=== PATIENT | male | born 1950 | race Caucasian/White ===

== ENCOUNTER 2018-02-24 08:19 | Day surgery (SDC) | payer OTHER ==
[~2018-02-24] VITALS: Ht 175.3 cm; Wt 89.8 kg
[~2018-02-24 08:19] MED LIST: ACYC200 PO; AMLO10 PO; AMLODIPINE-VAL1 EAC2 PO; ATOR40TA PO; CALC.25 PO; CALCA500CH PO; CHOL10002 PO; CITA20 PO; Citalopram HBr10 MG PO; FURO20 PO; Flomax0.4 MG PO; GI COCKTAIL; LOSA50 PO; METO100ER PO; METO50ER PO; NITR.6SL SL; Nephro-Vite RX1 EA PO; PANT40 PO; SEVE800 PO; SUCR1 PO; TERA5 PO
--- NOTE | 2018-02-24 09:00 | NUR ---
Ambulatory in Day Surgery History, Chart, Medications and Allergies reviewed before start of procedure.Patient confirms NPO status and agrees with scheduled surgery.STAT 12 LEAD ECG, H&H, CHEM PANEL COMPLETED. LUNGS WITH SCATTERED INSPIRATORY AND EXPIRATORY WHEEZES-HX OF LEFT LOBECTOMY. SATS>90% ON RA. Patient States Post-Procedure ride home has been arranged.
[2018-02-24 09:51] LABS: Bun/Creatinine Ratio 4.1 (12.0-20.0); Calcium, Blood 7.9 mg/dL (8.5-10.1); Creatinine, Blood 7.78 mg/dL (0.60-1.20); Potassium, Blood 4.7 mmol/L (3.5-5.5)
--- NOTE | 2018-02-24 10:14 | NUR ---
DENTURES OUT AND BROUGHT TO PACU FOR SAFE KEEPING DURING SURGERY.
--- NOTE | 2018-02-24 10:14 | NUR ---
CONTACT LENSE LEFT IN PER DR CABRERA.
--- NOTE | 2018-02-24 10:32 | NUR ---
02/24/18 1032 Jonathan Galeana NO PRE-OP ANTIBIOTICS ORDERED.
--- NOTE | 2018-02-24 12:36 | NUR ---
Discharge instructions reviewed with patient. Patient verbalizes understanding. Copy given to patient to take home. DC INSTRUCTIONS REVIEWED WITH PT/FAMILY. PT DRESSED WITH ASSIST FROM RN. PT JOKES ABOUT DIALYISIS STAFF ALWAYS CONCERNED THAT HE MAY FALL HIS GAIT IS UNSTABLE. THIS RN ASSISTS PT TO STAND AND TRANSFER TO AFTER ASSISTING HIM WITH GETTING DRESSED. PT SMOKES AND HAS INHALER. ENC TO STOP SMOKING. ENC TO DEEP BREATH AT LEAST 10 TIMES PER HOUR. ENC TO USE HIS INHALER DIRECTED T/O HIS RECOVERY PROCESS. Patient States Post-Procedure ride home has been arranged. Discharged via wheelchair to private car for ride home.
== END 2018-02-24 23:55 | disposition home or self-care (01) ==
LOC: ORSCMMR 08:19 → ORD 09:45 → ORSCMMR 23:55
PROVIDERS: Surgery
PROC: 06BY0ZC Excision of Hemorrhoidal Plexus, Open Approach (ICD-10-PCS; principal; 2018-02-24 09:45)
DX: K64.2 Third degree hemorrhoids (principal); K64.1 Second degree hemorrhoids; K64.4 Residual hemorrhoidal skin tags; I50.9 Heart failure, unspecified; N18.5 Chronic kidney disease, stage 5; Z99.2 Dependence on renal dialysis; J44.9 Chronic obstructive pulmonary disease, unspecified; F17.210 Nicotine dependence, cigarettes, uncomplicated; Z79.899 Other long term (current) drug therapy
CPT/HCPCS: 80048; 85014; 85018; 88304; 93005; 93010; J1100; J2250; J2370; J2405; J3010; J7030

== ENCOUNTER 2018-03-01 15:55 | Observation (INO) | payer OTHER ==
[~2018-03-01] VITALS: Ht 177.8 cm; Wt 89.5 kg
[2018-03-01 16:41] LABS: BASOPHILS ABSOLUTE AUTO 0.05 K/mm3 (0.00-0.23); BASOPHILS PERCENT AUTO 1 % (0-2); EOSINOPHILS ABSOLUTE AUTO 0.18 K/mm3 (0.00-0.68); EOSINOPHILS PERCENT AUTO 2 % (0-6); Hematocrit 31.7 % (37.0-53.0); IMMATURE GRAN ABSOLUTE AUTO 0.04 K/mm3 (0.00-0.10); IMMATURE GRAN PERCENT AUTO 0 % (0-1); LYMPHOCYTES ABSOLUTE AUTO 0.65 K/mm3 (0.84-5.20); LYMPHOCYTES PERCENT AUTO 7 % (21-46); MONOCYTES ABSOLUTE AUTO 1.14 K/mm3 (0.16-1.47); MONOCYTES PERCENT AUTO 12 % (4-13); Mean Corpuscular HGB 32.3 pg (26.0-34.0); Mean Corpuscular HGB Conc 31.5 g/dL (31.5-36.5); Mean Corpuscular Volume 102 fL (80-100); Mean Platelet Volume 9.3 fL (9.1-12.4); NEUTROPHILS ABSOLUTE AUTO 7.31 K/mm3 (1.96-9.15); NEUTROPHILS PERCENT AUTO 78 % (41-73); Platelet Count 372 K/mm3 (150-400); RDW Coefficient Variation 15.6 % (11.7-14.2); RDW Standard Deviation 58.5 fL (35.1-46.3); White Blood Cell Count 9.37 K/mm3 (4.00-11.30)
[2018-03-01 17:35] LABS: Albumin, Blood 3.2 g/dL (3.4-5.0); Albumin/Globulin Ratio 0.7 (0.8-1.8); Bilirubin, Total 0.3 mg/dL (0.1-1.0); Bun/Creatinine Ratio 5.1 (12.0-20.0); Calcium, Blood 8.4 mg/dL (8.5-10.1); Creatinine, Blood 14.2 mg/dL (0.60-1.20); Globulin, Blood 4.5 g/dL (2.2-4.0); Potassium, Blood 5.8 mmol/L (3.5-5.5); Total Protein, Blood 7.7 g/dL (6.4-8.2)
[2018-03-01 21:48] LABS: Magnesium, Blood 3.2 mg/dL (1.6-2.4); Phosphorus, Blood 6.5 mg/dL (2.5-4.9)
[2018-03-01 23:10] LABS: PO2 Arterial 80.4 mmHg (80-100); pH Blood Arterial 7.34 (7.35-7.45)
--- NOTE | 2018-03-01 23:25 | NUR ---
DR BURLESON CALLED AND ORDERED STAT POTASSIUM AND ABG DRAWS. CALLED DR BURLESON ONCE RESULTS WERE AVAILABLE AND READ RESULTS TO HIM. DR BURLESON STATED "THAT SEEMS FINE, WE WILL DIALYZE THE PT IN THE MORNING".
[2018-03-02 00:13] LABS: Source, Urine Catheter
[2018-03-02 00:16] LABS: Bilirubin, Urine Neg (Neg); Blood, Urine 1+ (Neg); Glucose Qualitative, Urine Neg (Neg); Ketones, Urine Neg (Neg); Leukocyte Esterase, Urine Neg (Neg); Nitrite, Urine Neg (Neg); Protein, Urine 2+ (Neg); Urobilinogen, Urine NORM (Normal)
[2018-03-02 00:24] LABS: Appearance, Urine Clear (Clear); Color, Urine Yellow (P-Yellow)
[2018-03-02 00:25] LABS: Red Blood Cells, Urine 0-2 /hpf (0-2); Squamous Epithelial Cells Not Seen /hpf (Few); White Blood Cells, Urine Rare /hpf (0-5)
[2018-03-02 00:26] LABS: Bacteria Not Seen /hpf
[2018-03-02 04:48] LABS: Hemoglobin 8.4 g/dL (13.5-17.5); Mean Corpuscular HGB 32.1 pg (26.0-34.0); Mean Corpuscular HGB Conc 31.1 g/dL (31.5-36.5); Mean Corpuscular Volume 103 fL (80-100); Mean Platelet Volume 9.1 fL (9.1-12.4); Platelet Count 329 K/mm3 (150-400); RDW Coefficient Variation 15.8 % (11.7-14.2); Red Blood Cell Count 2.62 M/mm3 (4.30-5.90); White Blood Cell Count 10.38 K/mm3 (4.00-11.30)
[2018-03-02 05:45] LABS: Albumin, Blood 2.8 g/dL (3.4-5.0); Anion Gap 12 mmol/L (6-16); Blood Urea Nitrogen 78 mg/dL (8-24); Bun/Creatinine Ratio 5.4 (12.0-20.0); CO2, Blood 28 mmol/L (21-32); Calcium, Blood 7.6 mg/dL (8.5-10.1); Chloride, Blood 93 mmol/L (98-108); Glomerular Filtration Rate 4 (60-); Glucose, Blood 85 mg/dL (70-99); Phosphorus, Blood 6.8 mg/dL (2.5-4.9); Potassium, Blood 5.4 mmol/L (3.5-5.5); Sodium, Blood 133 mmol/L (136-145)
--- NOTE | 2018-03-02 06:58 | NUR ---
NOC SHIFT SUMMARY THIS PT WAS ADMITTED THIS NIGHT FOR CKD AND INCREASED K+ AND CREATININE. HE HAS BEEN LARGLEY COMPLIANT WITH CARE BUT CAN GET ANXIOUS AND RUDE. A WHELAN WAS PLACED FOR URINARY RETENSION. HE HAS SLEPT LARGELY THROUGHT THE NIGHT. BENJY WAS IN THIS NIGHT AND IS AWARE OF LABS.
--- NOTE | 2018-03-02 19:25 | NUR ---
SHIFT SUMMARY PT HAD DIALYSIS TODAY. HAS BECOME MORE BELLIGERANT THE DAY GOES ON. REPORT VISUAL HALLUCINATIONS AND FEELING LIKE HE CAN'T MAKE A FULL CONSCIOUS COMMENT. FOUND GETTING OUT OF BED AT SUPPERTIME AND ASSISTED TO CHAIR WITH ALARM IN PLACE. STARTED COMPLAINING THAT HE HAD THE URGE TO URINATE AND HIS BLADDER HURT. TUBING WITHOUT KINKS OR BENDS AND APPEARED TO BE DRAINING PROPERLY. SPOKE WITH MD ABOUT BEHAVIOR AND WHELAN. SEE NEW ORDERS. HAS HAD LOOSE STOOL TODAY.
--- NOTE | 2018-03-03 05:12 | NUR ---
NOC SHIFT SUMMARY PT HAS BEEN LARGELY COMPLIANT WITH CARE THOUGH STILL VERBALLY RUDE TO STAFF. HAS HAD VISUAL HALUCINATIONS THIS NIGHT BELIEVING HIS REFELCTION IS ANOTHER PERSON. ALSO BELIEVES HIMSELF TO BE A "19 YEAR OLD WHITE MAN". IS CONTINENT OF URINE AND STOOL. HAS VOIDED MULTIPLE TIMES THROUGH THE NIGHT WELL HAD BM. PT HAS BEEN NPO SINCE MIDNIGHT IN PREP FOR [facility]. CURRENTLY RESTING PEACEFULLY.
[2018-03-03 05:44] LABS: BASOPHILS ABSOLUTE AUTO 0.04 K/mm3 (0.00-0.23); BASOPHILS PERCENT AUTO 1 % (0-2); EOSINOPHILS ABSOLUTE AUTO 0.27 K/mm3 (0.00-0.68); EOSINOPHILS PERCENT AUTO 4 % (0-6); Hematocrit 30.8 % (37.0-53.0); Hemoglobin 9.5 g/dL (13.5-17.5); IMMATURE GRAN ABSOLUTE AUTO 0.02 K/mm3 (0.00-0.10); IMMATURE GRAN PERCENT AUTO 0 % (0-1); LYMPHOCYTES PERCENT AUTO 13 % (21-46); MONOCYTES ABSOLUTE AUTO 1.08 K/mm3 (0.16-1.47); MONOCYTES PERCENT AUTO 15 % (4-13); Mean Corpuscular HGB 31.8 pg (26.0-34.0); Mean Corpuscular HGB Conc 30.8 g/dL (31.5-36.5); Mean Corpuscular Volume 103 fL (80-100); Mean Platelet Volume 9.3 fL (9.1-12.4); NEUTROPHILS ABSOLUTE AUTO 4.71 K/mm3 (1.96-9.15); NEUTROPHILS PERCENT AUTO 67 % (41-73); Platelet Count 322 K/mm3 (150-400); RDW Coefficient Variation 15.9 % (11.7-14.2); RDW Standard Deviation 60.6 fL (35.1-46.3); Red Blood Cell Count 2.99 M/mm3 (4.30-5.90); White Blood Cell Count 7.02 K/mm3 (4.00-11.30)
[2018-03-03 06:34] LABS: Magnesium, Blood 2.6 mg/dL (1.6-2.4)
[2018-03-03 06:45] LABS: Albumin, Blood 2.7 g/dL (3.4-5.0); Anion Gap 10 mmol/L (6-16); Blood Urea Nitrogen 43 mg/dL (8-24); Bun/Creatinine Ratio 4.1 (12.0-20.0); CO2, Blood 31 mmol/L (21-32); Calcium, Blood 7.8 mg/dL (8.5-10.1); Chloride, Blood 95 mmol/L (98-108); Glomerular Filtration Rate 5 (60-); Glucose, Blood 85 mg/dL (70-99); Phosphorus, Blood 5.7 mg/dL (2.5-4.9); Potassium, Blood 4.9 mmol/L (3.5-5.5); Sodium, Blood 136 mmol/L (136-145)
--- NOTE | 2018-03-03 07:16 | NUR ---
CRITICAL HIGH CREATININE SAW DR BURLESON IN COUNT INCLUDES THE [facility], REPORTED PT HAD CRITICAL HIGH CREATININE 10.[address] BURLESON "THATS OK, HE WILL BE GETTING DIALYSIS TODAY".
[2018-03-03] MEDS ORDERED: ACET325 PO (13:49)
[2018-03-03] MEDS ORDERED: ALBU90OI INH (13:50)
[2018-03-03] MEDS ORDERED: AMLO5 PO (13:51)
[2018-03-03] MEDS ORDERED: OYSTER SHELL C PO (13:55)
[2018-03-03] MEDS ORDERED: DOCU100 PO (13:56)
[2018-03-03] MEDS ORDERED: MIRALAX17 GM PO (13:57)
[2018-03-03] MEDS ORDERED: ONDA4 PO (13:57)
--- NOTE | 2018-03-03 16:50 | NUR ---
PATIENT DISCHARGE: PATIENT DISCHARGED TO HOME THIS SHIFT. MEDICATION RECONCILIATION COMPLETED; MED LIST AND OTHER PERTINENT PAPERWORK FAXED TO [facility]. DISCHARGE EDUCATION COMPLETED WITH PATIENT. PATIENT TRANSPORTED TO EXIT BY [facility] STAFF WITH WHEELCHAIR AT 1640. PATIENT DEPARTED [facility] VIA PRIVATE AUTO.
== END 2018-03-03 16:42 | disposition home or self-care (01) ==
LOC: ER 15:55 → MEDS 15:56 → ENPENDDIS 03-03 12:53 → MEDS 03-03 16:42
PROVIDERS: Emergency Medicine; Internal Medicine Nephrology; Nurse Practitioner Acute Care; ADMIT Hospitalist
DX: G93.40 Encephalopathy, unspecified (principal); I13.2 Hypertensive heart and chronic kidney disease with heart failure and with stage 5 chronic kidney disease, or end stage renal disease; I50.9 Heart failure, unspecified; D63.1 Anemia in chronic kidney disease; N18.6 End stage renal disease; E87.1 Hypo-osmolality and hyponatremia; E83.30 Disorder of phosphorus metabolism, unspecified; E87.5 Hyperkalemia; J44.9 Chronic obstructive pulmonary disease, unspecified; R10.9 Unspecified abdominal pain; B00.9 Herpesviral infection, unspecified; M54.5 Low back pain; G89.29 Other chronic pain; K21.9 Gastro-esophageal reflux disease without esophagitis; E78.5 Hyperlipidemia, unspecified; E86.9 Volume depletion, unspecified; N25.81 Secondary hyperparathyroidism of renal origin; Z79.899 Other long term (current) drug therapy; Z85.828 Personal history of other malignant neoplasm of skin; Z86.010 Personal history of colon polyps; Z91.15 Patient's noncompliance with renal dialysis
CPT/HCPCS: 36415; 36430; 36600; 51702; 74022; 76700; 80048; 80053; 80069; 81001; 82330; 82803; 82947; 83735; 84100; 84132; 85014; 85018; 85025; 85027; 86850; 86900; 86901; 86923; 93005; 93010; 94640; 94760; 96361; 96374; 96375; 97162; 97530; 99285-25; G0103; G0257; G0378; G0480; J0610; J0881; J1815; J2405; J7030; P9016

== ENCOUNTER 2019-07-18 06:50 | Day surgery (SDC) | payer OTHER ==
[~2019-07-18] VITALS: Ht 175.3 cm; Wt 80.1 kg
[~2019-07-18 06:50] MED LIST changes: +ACET325 PO; +ALBU90OI INH; +AMLO5 PO; +DOCU100 PO; +ERGO400 PO; +Exforge 5-3201 EACH PO; +MIRALAX17 GM PO; +ONDA4 PO; +OYSTER SHELL C PO; +SEVEC800 PO; +TRAMADOL HCL E100 MG PO
[2019-07-18] MEDS ORDERED: CINA30 (07:13)
[2019-07-18] MEDS ORDERED: LOPE2C (07:13)
== END 2019-07-18 08:51 | disposition home or self-care (01) ==
LOC: ORSCSDS 06:50
PROVIDERS: Ophthalmology
PROC: 08RJ3JZ Replacement of Right Lens with Synthetic Substitute, Percutaneous Approach (ICD-10-PCS; principal; 2019-07-18 08:00)
DX: H25.11 Age-related nuclear cataract, right eye (principal); H21.81 Floppy iris syndrome; I10 Essential (primary) hypertension; E11.9 Type 2 diabetes mellitus without complications; E78.5 Hyperlipidemia, unspecified; J44.9 Chronic obstructive pulmonary disease, unspecified; N18.4 Chronic kidney disease, stage 4 (severe); Z79.899 Other long term (current) drug therapy
CPT/HCPCS: J2001; J2250; J2405; J3010; J3301; J7040; V2632

== ENCOUNTER 2020-03-12 12:47 | Observation (INO) | payer OTHER, MEDICARE ==
[~2020-03-12] VITALS: Ht 175.3 cm; Wt 78.1 kg
[~2020-03-12 12:47] MED LIST changes: +CINA30; +LOPE2C
[2020-03-12 16:40] LABS: Calcium, Ionized (POC) 0.93 mmol/L (1.10-1.46); Chloride (POC) 97 mmol/L (98-108); Creatinine (POC) 13.9 mg/dL (0.8-1.3); Glucose (ISTAT POC) 94 mg/dL (70-99); Hemoglobin (POC) 10.9 g/dL (13.5-17.5); Potassium (POC) 5.5 mmol/L (3.5-5.5); Sodium (POC) 137 mmol/L (135-148); Total CO2 (POC) 29 mmol/L (21-32)
[2020-03-12 17:56] LABS: BASOPHILS ABSOLUTE AUTO 0.08 K/mm3 (0.00-0.23); BASOPHILS PERCENT AUTO 1 % (0-2); EOSINOPHILS ABSOLUTE AUTO 0.25 K/mm3 (0.00-0.68); EOSINOPHILS PERCENT AUTO 3 % (0-6); Hematocrit 32.9 % (37.0-53.0); Hemoglobin 10.3 g/dL (13.5-17.5); IMMATURE GRAN ABSOLUTE AUTO 0.02 K/mm3 (0.00-0.10); IMMATURE GRAN PERCENT AUTO 0 % (0-1); LYMPHOCYTES ABSOLUTE AUTO 1.04 K/mm3 (0.84-5.20); LYMPHOCYTES PERCENT AUTO 13 % (21-46); MONOCYTES ABSOLUTE AUTO 0.67 K/mm3 (0.16-1.47); MONOCYTES PERCENT AUTO 8 % (4-13); Mean Corpuscular HGB 31.9 pg (26.0-34.0); Mean Corpuscular HGB Conc 31.3 g/dL (31.5-36.5); Mean Corpuscular Volume 102 fL (80-100); Mean Platelet Volume 9.4 fL (9.1-12.4); NEUTROPHILS PERCENT AUTO 75 % (41-73); Platelet Count 400 K/mm3 (150-400); RDW Coefficient Variation 12.6 % (11.7-14.2); RDW Standard Deviation 47.1 fL (35.1-46.3); Red Blood Cell Count 3.23 M/mm3 (4.30-5.90); White Blood Cell Count 8.16 K/mm3 (4.00-11.30)
[2020-03-12 18:15] LABS: Prothrombin Time Results 10.7 Sec (9.7-11.5)
[2020-03-12] MEDS ORDERED: AMLO5 PO (20:45)
[2020-03-12] MEDS ORDERED: LOPE2C PO (22:34)
[2020-03-12] MEDS ORDERED: Masophen500 MG PO (22:35)
--- NOTE | 2020-03-13 05:05 | NUR ---
SHIFT SUMMARY: JOHNNIE IS A&OX4. BP ELEVATED, VSS OTHERWISE. HE IS A ONE PERSON STANDBY ASSIST TO THE BATHROOM D/T PAIN AND BASELINE SOB. HE IS URINATING WITHOUT DIFFICULTY. HE HAS RESTED QUIETLY THE MAJORITY OF THE SHIFT. HE WAS MADE NPO AT MIDNIGHT IN ANTICIPATION OF SURGICAL INTERVENTION TODAY. IV TO R AC PATENT, HEPARIN INFUSING, WILL BE SHUT OFF AT 0600. HE IS ABLE TO MAKE HIS NEEDS KNOWN. HE IS LYING IN BED WITH HIS CALL LIGHT IN REACH. WILL REPORT TO DAY SHIFT RN.
[2020-03-13 05:32] LABS: Hematocrit 27.1 % (37.0-53.0); Hemoglobin 8.5 g/dL (13.5-17.5)
[2020-03-13 05:55] LABS: Influenza A, PCR Negative (NEGATIVE); Influenza B, PCR Negative (NEGATIVE); Resp Syncytial Virus, PCR Negative (NEGATIVE); SARS-Cov-2 (COVID-19) PCR, MMC Negative (NEGATIVE)
[2020-03-13 06:02] LABS: Magnesium, Blood 3.4 mg/dL (1.6-2.4)
[2020-03-13 06:10] LABS: Anion Gap 12 mmol/L (6-16); Blood Urea Nitrogen 94 mg/dL (8-24); Bun/Creatinine Ratio 6.9 (12.0-20.0); CO2, Blood 28 mmol/L (21-32); Calcium, Blood 7.7 mg/dL (8.5-10.1); Chloride, Blood 97 mmol/L (98-108); Glomerular Filtration Rate 4 (60-); Glucose, Blood 88 mg/dL (70-99); Phosphorus, Blood 8.5 mg/dL (2.5-4.9); Potassium, Blood 5.6 mmol/L (3.5-5.5); Sodium, Blood 137 mmol/L (136-145)
--- NOTE | 2020-03-13 07:47 | NUR ---
0747 to [facility] for intervention of dialysis shunt to left arm
--- NOTE | 2020-03-13 08:12 | NUR ---
0720 DIALYSIS SHUNT PRESENT TO LEFT FOREARM, UNABLE TO HEAR BRUIT OR PALPATE THRILL, RADIAL PULSE STRONG
--- NOTE | 2020-03-13 09:45 | NUR ---
RETURN TO ROOM. PERMACATH INTACT TO RIGHT TABBY. DRESSING DRY AND INTACT. TEGADERM X2 TO LEFT FOREARM, CLEAN, DRY AND INTACT. PT DENIES PAIN
--- NOTE | 2020-03-13 14:34 | NUR ---
9957 PATIENT DISCHARGED TO HOME. RIGHT PERMACATH INTACT WITH DRESSING DRY AND INTACT. LEFT FORARM WITH DRESSING DRY AND INTACT. PT HAS FOLLOW UP DIALYSIS APPT. SCHEDULED. DISCHARGE MED RECONCILLIATION FAXED TO [facility]. PT DENIES PAIN AND VERBALIZES UNDERSTANDING OF DISCHARGE INSTRUCTIONS
== END 2020-03-13 14:25 | disposition home or self-care (01) ==
LOC: ER 12:47 → SURS 12:48 → ERHOLD 12:48 → SURS 19:20
PROVIDERS: Emergency Medicine; Internal Medicine Nephrology; Nurse Practitioner Acute Care; ADMIT Internal Medicine
DX: T82.868A Thrombosis due to vascular prosthetic devices, implants and grafts, initial encounter (principal); I13.2 Hypertensive heart and chronic kidney disease with heart failure and with stage 5 chronic kidney disease, or end stage renal disease; N18.6 End stage renal disease; I50.9 Heart failure, unspecified; J44.9 Chronic obstructive pulmonary disease, unspecified; K21.9 Gastro-esophageal reflux disease without esophagitis; E86.9 Volume depletion, unspecified; E87.5 Hyperkalemia; E83.51 Hypocalcemia; D63.1 Anemia in chronic kidney disease; F17.210 Nicotine dependence, cigarettes, uncomplicated; Z66 Do not resuscitate; Y83.2 Surgical operation with anastomosis, bypass or graft as the cause of abnormal reaction of the patient, or of later complication, without mention of misadventure at the time of the procedure; Z99.2 Dependence on renal dialysis; Z98.1 Arthrodesis status; Z86.711 Personal history of pulmonary embolism
CPT/HCPCS: 0241U; 36415; 36558; 71045; 76937; 77001; 80047; 80069; 83735; 85014; 85018; 85025; 85610; 85730; 93971; 96365; 96375; 99152; 99153; 99285-25; A9270; C1750; C1769; C1887; C1894; G0257; G0378; J0610; J1644; J2250; J3010; J7030; J7040; Q9967

== ENCOUNTER 2021-01-13 15:59 | Emergency (ER) | payer OTHER ==
[~2021-01-13] VITALS: Ht 175.3 cm; Wt 77.1 kg
[~2021-01-13 15:59] MED LIST changes: +LOPE2C PO; +Masophen500 MG PO
[2021-01-13 17:38] LABS: BASOPHILS ABSOLUTE AUTO 0.05 K/mm3 (0.00-0.23); BASOPHILS PERCENT AUTO 1 % (0-2); EOSINOPHILS ABSOLUTE AUTO 0.13 K/mm3 (0.00-0.68); EOSINOPHILS PERCENT AUTO 1 % (0-6); Hematocrit 29.8 % (37.0-53.0); Hemoglobin 9.2 g/dL (13.5-17.5); IMMATURE GRAN ABSOLUTE AUTO 0.04 K/mm3 (0.00-0.10); IMMATURE GRAN PERCENT AUTO 0 % (0-1); LYMPHOCYTES ABSOLUTE AUTO 0.41 K/mm3 (0.84-5.20); LYMPHOCYTES PERCENT AUTO 4 % (21-46); MONOCYTES PERCENT AUTO 9 % (4-13); Mean Corpuscular HGB 31.2 pg (26.0-34.0); Mean Corpuscular HGB Conc 30.9 g/dL (31.5-36.5); Mean Corpuscular Volume 101 fL (80-100); Mean Platelet Volume 8.9 fL (9.1-12.4); NEUTROPHILS ABSOLUTE AUTO 7.93 K/mm3 (1.96-9.15); NEUTROPHILS PERCENT AUTO 85 % (41-73); Platelet Count 401 K/mm3 (150-400); RDW Coefficient Variation 13.4 % (11.7-14.2); RDW Standard Deviation 49.4 fL (35.1-46.3); Red Blood Cell Count 2.95 M/mm3 (4.30-5.90); White Blood Cell Count 9.36 K/mm3 (4.00-11.30)
[2021-01-13 17:46] LABS: Albumin, Blood 2.9 g/dL (3.4-5.0); Albumin/Globulin Ratio 0.7 (0.8-1.8); Bilirubin, Total 0.3 mg/dL (0.1-1.0); Bun/Creatinine Ratio 4.8 (12.0-20.0); Calcium, Blood 8.4 mg/dL (8.5-10.1); Creatinine, Blood 6.22 mg/dL (0.60-1.20); Globulin, Blood 4.2 g/dL (2.2-4.0); Potassium, Blood 4.7 mmol/L (3.5-5.5); Total Protein, Blood 7.1 g/dL (6.4-8.2)
[2021-01-13 17:59] LABS: Base Excess Venous 8.3 mmol/L; Bicarbonate Venous 30.6 mmol/L (24.0-30.0); PCO2 Venous 58.6 mmHg (38-42); pH Blood Venous 7.37 (7.34-7.37)
[2021-01-13] MEDS ORDERED: PRED20 PO (20:49)
[2021-01-13] MEDS ORDERED: SYMBICORT 80-10.2 GM INH (20:50)
[2021-01-13] MEDS ORDERED: AZIT250 PO (20:50)
[2021-01-13] MEDS ORDERED: ALBU90OI INH (20:50)
[2021-01-14] MEDS ORDERED: FLUT1DIS5 INH (07:47)
== END 2021-01-13 21:28 | disposition home or self-care (01) ==
LOC: ER 15:59
PROVIDERS: Physician Assistant
DX: J44.1 Chronic obstructive pulmonary disease with (acute) exacerbation (principal); D64.9 Anemia, unspecified; Z79.899 Other long term (current) drug therapy; N18.5 Chronic kidney disease, stage 5; I13.2 Hypertensive heart and chronic kidney disease with heart failure and with stage 5 chronic kidney disease, or end stage renal disease; I50.9 Heart failure, unspecified; K21.9 Gastro-esophageal reflux disease without esophagitis; F17.210 Nicotine dependence, cigarettes, uncomplicated
CPT/HCPCS: 71045; 80053; 82375; 82803; 83880; 85025; 93005; 93010; 94640; 94644; 99284-25; A9270; J7512

== ENCOUNTER 2021-02-25 16:39 | Inpatient (IN) | payer OTHER ==
[~2021-02-25] VITALS: Ht 175.3 cm; Wt 76.3 kg
[~2021-02-25 16:39] MED LIST changes: +AZIT250 PO; -ERGO400 PO; +FLUT1DIS5 INH; +PRED20 PO; +SYMBICORT 80-10.2 GM INH; +Vitamin D1000 UNI1 PO
[2021-02-25 17:25] LABS: BASOPHILS ABSOLUTE AUTO 0.07 K/mm3 (0.00-0.23); BASOPHILS PERCENT AUTO 1 % (0-2); EOSINOPHILS ABSOLUTE AUTO 0.07 K/mm3 (0.00-0.68); EOSINOPHILS PERCENT AUTO 1 % (0-6); Hematocrit 41.3 % (37.0-53.0); Hemoglobin 12.2 g/dL (13.5-17.5); IMMATURE GRAN ABSOLUTE AUTO 0.05 K/mm3 (0.00-0.10); IMMATURE GRAN PERCENT AUTO 1 % (0-1); LYMPHOCYTES ABSOLUTE AUTO 0.53 K/mm3 (0.84-5.20); LYMPHOCYTES PERCENT AUTO 6 % (21-46); MONOCYTES ABSOLUTE AUTO 0.81 K/mm3 (0.16-1.47); MONOCYTES PERCENT AUTO 9 % (4-13); Mean Corpuscular HGB 28.6 pg (26.0-34.0); Mean Corpuscular HGB Conc 29.5 g/dL (31.5-36.5); Mean Corpuscular Volume 97 fL (80-100); Mean Platelet Volume 9.5 fL (9.1-12.4); NEUTROPHILS ABSOLUTE AUTO 7.66 K/mm3 (1.96-9.15); NEUTROPHILS PERCENT AUTO 83 % (41-73); Platelet Count 375 K/mm3 (150-400); RDW Coefficient Variation 15.8 % (11.7-14.2); Red Blood Cell Count 4.27 M/mm3 (4.30-5.90); White Blood Cell Count 9.19 K/mm3 (4.00-11.30)
[2021-02-25 17:52] LABS: Alanine Aminotransfer (ALT/SGP 28 U/L (12-78); Albumin, Blood 2.8 g/dL (3.4-5.0); Albumin/Globulin Ratio 0.6 (0.8-1.8); Alk Phos 92 U/L (50-136); Anion Gap 9 mmol/L (6-16); Aspartate Aminotrans (AST/SGOT 26 U/L (12-37); Bilirubin, Total 0.3 mg/dL (0.1-1.0); Blood Urea Nitrogen 44 mg/dL (8-24); Bun/Creatinine Ratio 4.8 (12.0-20.0); CO2, Blood 27 mmol/L (21-32); Chloride, Blood 97 mmol/L (98-108); Creatinine, Blood 9.13 mg/dL (0.60-1.20); Globulin, Blood 4.8 g/dL (2.2-4.0); Glomerular Filtration Rate 6 (60-); Glucose, Blood 103 mg/dL (70-99); Potassium, Blood 5.8 mmol/L (3.5-5.5); Sodium, Blood 133 mmol/L (136-145); Total Protein, Blood 7.6 g/dL (6.4-8.2)
[2021-02-25 21:45] LABS: Troponin I <0.015 ng/mL (0.000-0.040)
[2021-02-25 22:10] LABS: Base Excess Venous 7.1 mmol/L; Bicarbonate Venous 28.7 mmol/L (24.0-30.0); PCO2 Venous 63.5 mmHg (38-42); PO2 Venous 42.6 mmHg (38-42); pH Blood Venous 7.33 (7.34-7.37)
[2021-02-26 05:01] LABS: Base Excess Venous 2.8 mmol/L; Bicarbonate Venous 26.6 mmol/L (24.0-30.0); PCO2 Venous 42.3 mmHg (38-42); PO2 Venous 101 mmHg (38-42); pH Blood Venous 7.42 (7.34-7.37)
[2021-02-26 05:40] LABS: BASOPHILS ABSOLUTE AUTO 0.03 K/mm3 (0.00-0.23); BASOPHILS PERCENT AUTO 0 % (0-2); EOSINOPHILS PERCENT AUTO 0 % (0-6); Hemoglobin 11.1 g/dL (13.5-17.5); IMMATURE GRAN ABSOLUTE AUTO 0.05 K/mm3 (0.00-0.10); IMMATURE GRAN PERCENT AUTO 1 % (0-1); LYMPHOCYTES PERCENT AUTO 2 % (21-46); MONOCYTES ABSOLUTE AUTO 0.07 K/mm3 (0.16-1.47); MONOCYTES PERCENT AUTO 1 % (4-13); Mean Corpuscular HGB 28.8 pg (26.0-34.0); Mean Corpuscular Volume 96 fL (80-100); Mean Platelet Volume 9.6 fL (9.1-12.4); NEUTROPHILS ABSOLUTE AUTO 9.58 K/mm3 (1.96-9.15); NEUTROPHILS PERCENT AUTO 97 % (41-73); Platelet Count 390 K/mm3 (150-400); RDW Coefficient Variation 15.8 % (11.7-14.2); Red Blood Cell Count 3.86 M/mm3 (4.30-5.90); White Blood Cell Count 9.93 K/mm3 (4.00-11.30)
--- NOTE | 2021-02-26 06:25 | NUR ---
SHIFT SUMMARY PT WAS A NEW ADMIT DURING THE NIGHT, ARRIVING ON THE FLOOR AT 0127. HE WAS ADMITTED FOR COPD EXACERBATION. A&O X 4, SBA IN THE ROOM. VITAL SIGNS STABLE, CURRENTLY ON 4L O2 VIA NC, SATTING 90-92%. TELE SHOWED NSR IN THE 90S. PT REPORTED GENERALIZED PAIN, BUT DENIED THE NEED FOR ANY PAIN MEDICATION. PT REPORTS SOB WITH EXERTION OR WALKING. NO C/O NAUSEA. NO ACUTE CHANGES IN PT CONDITION NOTED SINCE ADMISSION TO THE FLOOR. WILL CONTINUE TO MONITOR AND TREAT PER EMAR UNTIL HAND OFF TO DAY SHIFT RN.
[2021-02-26 07:32] LABS: Albumin, Blood 2.7 g/dL (3.4-5.0); Anion Gap 13 mmol/L (6-16); Blood Urea Nitrogen 51 mg/dL (8-24); Bun/Creatinine Ratio 5.2 (12.0-20.0); CO2, Blood 27 mmol/L (21-32); Calcium, Blood 7.4 mg/dL (8.5-10.1); Chloride, Blood 95 mmol/L (98-108); Creatinine, Blood 9.84 mg/dL (0.60-1.20); Glomerular Filtration Rate 5 (60-); Glucose, Blood 105 mg/dL (70-99); Phosphorus, Blood 7.9 mg/dL (2.5-4.9); Potassium, Blood 6.6 mmol/L (3.5-5.5); Sodium, Blood 135 mmol/L (136-145)
[2021-02-26 16:17] LABS: International Normalized Ratio 1.01; Prothrombin Time Results 10.6 Sec (9.7-11.5)
--- NOTE | 2021-02-26 16:30 | NUR ---
SHIFT SUMMARY PATIENT DENIES PAIN AND NAUSEA. PATIENT REPORTS SHORTNESS OF BREATH WITH ACTIVITY. PATIENT DESATS WITH ACTIVITY, INCREASED OXYGEN TO 5L WHEN AMBULATING. PATIENT, AT REST, ON 3-4L VIA N/C. CONSULT CALLED FOR DR. FLORES, HE SAW PATIENT THIS AFTERNOON. PATIENT HAD DIALYSIS THIS AFTERNOON. BIOPSY ORDERED, SCHEDULED FOR TOMORROW MORNING. PER ELECTRIC WELDER HELPER, HOLD HEPARIN IN MORNING. PATIENT HAD ABDOMEN CT THIS AFTERNOON. PATIENT REPORTS BEING TIRED. PATIENT IS EATING AND DRINKING WELL. PATIENT HAS A FLAT AFFECT, BUT PLEASANT AND COOPERATIVE WITH CARE. PATIENT IS INDEPENDENT IN ROOM.
--- NOTE | 2021-02-26 22:41 | NUR ---
TRANSFER PT TRANSFERRED FROM SCU RM 349 TO RM 339. BELONGINGS IN PLACE, PT RESTING IN BED WITHOUT DISTRESS. PT DENIES NEEDS. REPORT TAKEN TO ASSUME CARE OF PT.
[2021-02-27] MEDS ORDERED: Calcium Acetat667 MG PO (02:41)
[2021-02-27] MEDS ORDERED: VITAMIN D31000 UNI1 PO (02:42)
[2021-02-27] MEDS ORDERED: LOPE2C PO (02:43)
[2021-02-27] MEDS ORDERED: SILDENAFIL CIT100 MG PO (03:21)
[2021-02-27] MEDS ORDERED: SODIUM ZIRCONIUM CYCLOSILICATE PO (03:24)
[2021-02-27] MEDS ORDERED: Triamcinolone A15 G3 TOP (03:26)
[2021-02-27 04:53] LABS: Hematocrit 35.3 % (37.0-53.0); Hemoglobin 10.7 g/dL (13.5-17.5)
--- NOTE | 2021-02-27 05:06 | NUR ---
SHIFT SUMMARY NO ACUTE CHANGES TO REPORT THIS SHIFT. PT TRANSFERRED FROM SCU TO 339 THIS SHIFT. PT HAS RESTED MOST OF THE NIGHT AND HAS DENIED NEEDS. PLAN OF CARE REMAINS UNCHANGED. BED IN LOWEST POSITION, CALL LIGHT WITHIN REACH.
[2021-02-27 05:30] LABS: Magnesium, Blood 2.4 mg/dL (1.6-2.4)
[2021-02-27 06:13] LABS: Albumin, Blood 2.5 g/dL (3.4-5.0); Anion Gap 11 mmol/L (6-16); Blood Urea Nitrogen 47 mg/dL (8-24); Bun/Creatinine Ratio 5.8 (12.0-20.0); CO2, Blood 29 mmol/L (21-32); Calcium, Blood 7.5 mg/dL (8.5-10.1); Chloride, Blood 95 mmol/L (98-108); Creatinine, Blood 8.17 mg/dL (0.60-1.20); Glomerular Filtration Rate 6 (60-); Glucose, Blood 95 mg/dL (70-99); Potassium, Blood 5.7 mmol/L (3.5-5.5); Sodium, Blood 135 mmol/L (136-145)
[2021-02-27 06:14] LABS: Phosphorus, Blood 8.3 mg/dL (2.5-4.9)
--- NOTE | 2021-02-27 11:05 | NUR ---
ACQUISITION MARKETING MANAGER CALLED THIS RN AND REPORTED PATIENT C/O SOB. ACQUISITION MARKETING MANAGER SAID THAT RT WAS CALLED AND GAVE THE PATIENT A BREATHING TREATMENT AND INCREASED HIS OXYGEN TO 6L O2 VIA NC. CLINICAL COODINATOR NOTIFED AND SHE WENT DOWN TO DIALYSIS AND CHECKED IN ON THE PATIENT AND REPORTS SOB RESOLVED WITH RESPIRATORY THERAPY TREATMENTS.
--- NOTE | 2021-02-27 17:22 | NUR ---
PATIENT IS ALERT AND ORIENTED. HE WENT FOR A BIOPSY THIS MORNING AND THEN TO DIALYSIS FOR THE SECOND DAY IN A ROW. WHILE IN DIALYSIS, PATIENT C/O SOB AND WAS TREATED BY RT WITH BREATHING TREATMENT AND INCREASING OXYGEN FROM 4L TO 6L O2 VIA NC. THE PATIENT'S OXYGEN HAS BEEN TITRATED BACK DOWN TO HIS BASELINE OF 4L O2 VIA NC. WILL CONTINUE TO MONITOR
[2021-02-28 04:24] LABS: Hematocrit 36.6 % (37.0-53.0); Hemoglobin 10.6 g/dL (13.5-17.5); Mean Corpuscular HGB 28.5 pg (26.0-34.0); Mean Corpuscular Volume 98 fL (80-100); Mean Platelet Volume 9.4 fL (9.1-12.4); Platelet Count 331 K/mm3 (150-400); RDW Coefficient Variation 15.9 % (11.7-14.2); RDW Standard Deviation 55.5 fL (35.1-46.3); Red Blood Cell Count 3.72 M/mm3 (4.30-5.90); White Blood Cell Count 9.76 K/mm3 (4.00-11.30)
[2021-02-28 05:03] LABS: Albumin, Blood 2.4 g/dL (3.4-5.0); Anion Gap 12 mmol/L (6-16); Blood Urea Nitrogen 38 mg/dL (8-24); Bun/Creatinine Ratio 5.5 (12.0-20.0); CO2, Blood 27 mmol/L (21-32); Calcium, Blood 7.5 mg/dL (8.5-10.1); Chloride, Blood 99 mmol/L (98-108); Creatinine, Blood 6.94 mg/dL (0.60-1.20); Glomerular Filtration Rate 8 (60-); Glucose, Blood 86 mg/dL (70-99); Magnesium, Blood 2.4 mg/dL (1.6-2.4); Phosphorus, Blood 7.2 mg/dL (2.5-4.9); Potassium, Blood 5.7 mmol/L (3.5-5.5); Sodium, Blood 138 mmol/L (136-145)
--- NOTE | 2021-02-28 07:57 | NUR ---
pt laying in bed watching tv, a/ox3, pleasant and cooperative with care, follows commands well, denies pain this am, states he slept well, lungs are dim t/o, resp even and unlabored, no cough noted, hrr, no edema noted, ppp +1, cap refill <3sec, vs stable, afebrile, iv site to rwrist, is leaking with flush, charge nurse will be placing a power glide, btx4, abd flat soft nontender, voids via urinal, small amounts, will be having dialysis this am, has a fistula to left arm and perma cath to right c.w. skin very dry, isrrael domínguez, call light in reach.
--- NOTE | 2021-02-28 18:32 | NUR ---
pt had dialysis today, 500mls removed, no acute changes this shift, resting quietly in bed. no complaints. call light in reach.
[2021-03-01 04:10] LABS: PCO2 Arterial 57.2 mmHg (35-45); PO2 Arterial 65.4 mmHg (80-100); pH Blood Arterial 7.35 (7.35-7.45)
--- NOTE | 2021-03-01 05:48 | NUR ---
SHIFT SUMMARY A&OX4, ANXIOUS, PATIENT EXPRESED FRUSTRATION REGARDING TEST, TREATMENT, WIRES, ETC. SPOKE TO PATIENT AT LENGTH REGARDING PLAN OF CARE AND INDICATION FOR ABX, LAB DRAWS, AND CONTINUED BASELINE O2 THERAPY. ALL QUESTIONS AND CONCERNS ADRESEED. REMAINS ON 5L HUMIDIFIED 02 SAT >92%. LCTA, INTERMITTENT WHEEZE CLEARS WITH DEEP BREATH AND COUGH. NO SIGNIFICANT EVENTS OVERNIGHT.
[2021-03-01 06:38] LABS: Hematocrit 35.6 % (37.0-53.0); Hemoglobin 10.4 g/dL (13.5-17.5); Mean Corpuscular HGB 28.5 pg (26.0-34.0); Mean Corpuscular HGB Conc 29.2 g/dL (31.5-36.5); Mean Corpuscular Volume 98 fL (80-100); Mean Platelet Volume 9.8 fL (9.1-12.4); Platelet Count 325 K/mm3 (150-400); RDW Coefficient Variation 15.7 % (11.7-14.2); RDW Standard Deviation 55.4 fL (35.1-46.3); Red Blood Cell Count 3.65 M/mm3 (4.30-5.90); White Blood Cell Count 8.58 K/mm3 (4.00-11.30)
[2021-03-01 06:42] LABS: Albumin, Blood 2.3 g/dL (3.4-5.0); Anion Gap 8 mmol/L (6-16); Blood Urea Nitrogen 43 mg/dL (8-24); CO2, Blood 31 mmol/L (21-32); Calcium, Blood 7.6 mg/dL (8.5-10.1); Chloride, Blood 100 mmol/L (98-108); Creatinine, Blood 7.17 mg/dL (0.60-1.20); Glomerular Filtration Rate 8 (60-); Glucose, Blood 100 mg/dL (70-99); Phosphorus, Blood 6.8 mg/dL (2.5-4.9); Potassium, Blood 4.9 mmol/L (3.5-5.5); Sodium, Blood 139 mmol/L (136-145)
--- NOTE | 2021-03-01 08:00 | NUR ---
pt laying in bed awake a/ox3, has a flat affect, pleasant and cooperative with care, follows commands well, states his back is hurting, tylenol given, states he slept ok last night, took po meds without diff, no acute changes, call light in reach.
[2021-03-01] MEDS ORDERED: ALBU2.5V5 INH (10:31)
[2021-03-01] MEDS ORDERED: LACT PO (10:31)
--- NOTE | 2021-03-01 15:22 | NUR ---
PT HAS BEEN DISCHARGED TO HOME, NEW MEDICATION FAXED TO THE [facility], IV REMOVED INTACT, LEFT WITH ALL BELONGINGS VIA WHEELCHAIR, LOANED HIM AN O2 TANK HIS WAS ALMOST EMPTY. WENT OVER DISCHARGE INSTRUCTIONS WITH HIM, HE VERBALIZED UNDERSTANDING.
== END 2021-03-01 15:10 | disposition home or self-care (01) | DRG 823 ==
LOC: ER 16:39 → MEDS 16:40
PROVIDERS: Family Medicine; Internal Medicine; Internal Medicine Hematology & Oncology; Internal Medicine Nephrology; Physician Assistant; Student in an Organized Health Care Education/Training Program; ADMIT Internal Medicine
PROC: 07B63ZX Excision of Left Axillary Lymphatic, Percutaneous Approach, Diagnostic (ICD-10-PCS; principal; 2021-02-27)
DX: C77.3 Secondary and unspecified malignant neoplasm of axilla and upper limb lymph nodes (principal); J96.21 Acute and chronic respiratory failure with hypoxia; N18.6 End stage renal disease; I13.2 Hypertensive heart and chronic kidney disease with heart failure and with stage 5 chronic kidney disease, or end stage renal disease; E87.1 Hypo-osmolality and hyponatremia; E87.2 Acidosis; J44.1 Chronic obstructive pulmonary disease with (acute) exacerbation; I50.32 Chronic diastolic (congestive) heart failure; C34.12 Malignant neoplasm of upper lobe, left bronchus or lung; J91.0 Malignant pleural effusion; J96.12 Chronic respiratory failure with hypercapnia; D63.0 Anemia in neoplastic disease; Z66 Do not resuscitate; D63.1 Anemia in chronic kidney disease; E87.5 Hyperkalemia; F17.210 Nicotine dependence, cigarettes, uncomplicated; F41.9 Anxiety disorder, unspecified; K21.9 Gastro-esophageal reflux disease without esophagitis; G89.29 Other chronic pain; M54.9 Dorsalgia, unspecified; N40.0 Benign prostatic hyperplasia without lower urinary tract symptoms; E78.5 Hyperlipidemia, unspecified; Z99.81 Dependence on supplemental oxygen; Z98.890 Other specified postprocedural states; Z98.41 Cataract extraction status, right eye; Z98.52 Vasectomy status; Z98.42 Cataract extraction status, left eye; Z90.2 Acquired absence of lung [part of]; Z99.2 Dependence on renal dialysis; Z88.8 Allergy status to other drugs, medicaments and biological substances; Z85.118 Personal history of other malignant neoplasm of bronchus and lung; Z98.1 Arthrodesis status; Z79.2 Long term (current) use of antibiotics; Z79.899 Other long term (current) drug therapy
CPT/HCPCS: 36415; 36600; 38505; 71046; 71260; 74176; 76942; 80053; 80069; 82803; 83605; 83735; 83880; 84132; 84145; 84484; 85014; 85018; 85025; 85027; 85610; 85730; 87040; 88305; 88341; 88342; 93005; 93010; 94640; 94644; 94761; 94762; 96374; 97116; 97162; 99285-25; A9270; J0456; J0696; J1644; J1940; J2543; J3370; J7050; J7512; Q9967

== ENCOUNTER 2021-03-04 10:29 | Observation (INO) | payer OTHER ==
[~2021-03-04] VITALS: Ht 175.3 cm; Wt 74.5 kg
[~2021-03-04 10:29] MED LIST changes: +ALBU2.5V5 INH; +Calcium Acetat667 MG PO; +LACT PO; +SILDENAFIL CIT100 MG PO; +SODIUM ZIRCONIUM CYCLOSILICATE PO; +Triamcinolone A15 G3 TOP; +VITAMIN D31000 UNI1 PO
[2021-03-04 11:33] LABS: BASOPHILS ABSOLUTE AUTO 0.07 K/mm3 (0.00-0.23); BASOPHILS PERCENT AUTO 1 % (0-2); EOSINOPHILS ABSOLUTE AUTO 0.06 K/mm3 (0.00-0.68); EOSINOPHILS PERCENT AUTO 1 % (0-6); Hematocrit 36.1 % (37.0-53.0); Hemoglobin 10.7 g/dL (13.5-17.5); IMMATURE GRAN ABSOLUTE AUTO 0.05 K/mm3 (0.00-0.10); IMMATURE GRAN PERCENT AUTO 0 % (0-1); LYMPHOCYTES ABSOLUTE AUTO 0.46 K/mm3 (0.84-5.20); LYMPHOCYTES PERCENT AUTO 4 % (21-46); MONOCYTES ABSOLUTE AUTO 0.93 K/mm3 (0.16-1.47); MONOCYTES PERCENT AUTO 8 % (4-13); Mean Corpuscular HGB 28.5 pg (26.0-34.0); Mean Corpuscular HGB Conc 29.6 g/dL (31.5-36.5); Mean Corpuscular Volume 96 fL (80-100); Mean Platelet Volume 10.1 fL (9.1-12.4); NEUTROPHILS ABSOLUTE AUTO 9.95 K/mm3 (1.96-9.15); NEUTROPHILS PERCENT AUTO 86 % (41-73); Platelet Count 415 K/mm3 (150-400); RDW Coefficient Variation 15.6 % (11.7-14.2); RDW Standard Deviation 55.2 fL (35.1-46.3); Red Blood Cell Count 3.75 M/mm3 (4.30-5.90); White Blood Cell Count 11.52 K/mm3 (4.00-11.30)
[2021-03-04 11:55] LABS: PCO2 Arterial 70.6 mmHg (35-45); PO2 Arterial 114 mmHg (80-100); pH Blood Arterial 7.19 (7.35-7.45)
[2021-03-04 12:03] LABS: Troponin I <0.015 ng/mL (0.000-0.040)
[2021-03-04 12:08] LABS: Anion Gap 11 mmol/L (6-16); Blood Urea Nitrogen 81 mg/dL (8-24); Bun/Creatinine Ratio 6.4 (12.0-20.0); CO2, Blood 25 mmol/L (21-32); Calcium, Blood 7.9 mg/dL (8.5-10.1); Chloride, Blood 102 mmol/L (98-108); Glomerular Filtration Rate 4 (60-); Glucose, Blood 105 mg/dL (70-99); Potassium, Blood 6.1 mmol/L (3.5-5.5); Sodium, Blood 138 mmol/L (136-145)
[2021-03-04 13:08] LABS: Influenza A, PCR NEGATIVE (NEGATIVE); Influenza B, PCR NEGATIVE (NEGATIVE); Resp Syncytial Virus, PCR NEGATIVE (NEGATIVE); SARS-Cov-2 (COVID-19) PCR, MMC NEGATIVE (NEGATIVE)
[2021-03-04] MEDS ORDERED: SEVEC800 PO (14:51)
[2021-03-04] MEDS ORDERED: FLUT1DIS5 INH (14:58)
[2021-03-04] MEDS ORDERED: PRED20 PO (14:59)
[2021-03-04] MEDS ORDERED: METPRE4 PO (14:59)
--- NOTE | 2021-03-04 15:53 | NUR ---
Called to ER to see Mr Wang. He was struggling to much to breath and trying to follow the conversation but to sick. Pt placed on bipap and given some ativan. pt feet dusky poor oral hydration no edema noted. pt thin frail looks unkept. Called nurse at [facility] she states he has had great decline the past few months. Has been struggling with tolerance of dialysis. Review of chart notes and readmissions. Called by ER congregational care pastor she faxed a packet to [place] for assistance for pt. Sent a packet to [place] palliative team for hospice review. Called by admiting physician to discuss his status with pt family pt kps score is 20% physician concerned he may be eminent.pt has advance directive on file that states if he declines he would not want life support. Sister called in with her and review of his care and needs. We waited ahwile and stimulated him. He tried to wake up and interact but was unable. Reviewed per physician request his prognosis and risk for suffering. decision was made by his sister and that he did not want chemo and comfort care would be best. updated nursing and and phsycian. Updated that if he improves we can revisit plan of care and hopefully he can participate in decision. Offer to call dr Noe grissom have him help them with decision. Family declined stating he has been distraught by his decline and inablity to live independently. He was fearful that the cancer was back. pt sister knows he would not want to suffer they have discussed his wishes. Will see how he responds and update family and [facility].
--- NOTE | 2021-03-04 18:14 | NUR ---
SHIFT SUMMARY: ASSUMED CARE OF PT AT 1700 UPON HIS ARRIVAL FROM ED. SLEEPING, NODS YES TO ACKNOWLEDGE QUESTIONS. TRANSFERRED FROM [facility] TO BED WITHOUT INCIDENT. SISTER AND BROTHER IN LAW VISITED; PATIENT WOKE UP AND BEGAN CONVERSING WITH THEM. ON O2 @ 5 L/MIN, WHICH IS HIS BASELINE, HUMIDIFICATION ADDED. PT REQUESTED ICE WATER AND IS DRINKING WITHOUT COUGHING; [facility] SOFT DIET ORDERED. DENIES PAIN AT THIS TIME. A&O X 2, PLEASANT. DENIES SOB.
--- NOTE | 2021-03-04 18:54 | NUR ---
pt trying to wake up. he is very pale and ashen looking.review of plan with nursing. pt family in room to talk to him about his care. Will review with pt and family tomorrow. pt very fragile.
[2021-03-05] MEDS ORDERED: AZIT500 PO (00:44)
--- NOTE | 2021-03-05 03:53 | NUR ---
SHIFT SUMMARY PATIENT ON COMFORT CARE. AXOX 2 AND BEDREST. USES URINAL AT BEDSIDE. ON 5L O2 NC BASELINE. PIV REMAINS INTACT. DENIES PAIN, SOB, AND N/V. DIALYSIS PORT UPPER CHEST. SLEPT T/O SHIFT. FAMILY PRESENT FOR A FEW HOURS START OF SHIFT. CALL LIGHT IN REACH. BED IN LOWEST POSITION. WILL CONTINUE TO MONITOR UNTIL DAY SHIFT NURSE ASSUMES CARE.
--- NOTE | 2021-03-05 17:09 | NUR ---
Pt resting comfortably in bed, pleasant and cooperative. He had an episode of SOB today, was resolved by roxanol and pursed lip breathing. No changes made to CC orders today.
--- NOTE | 2021-03-05 18:13 | NUR ---
SHIFT SUMMARY: ON COMFORT CARE. DENIED PAIN, BUT ENDORSED SOME SOB AND AIR HUNGER FOR WHICH HE WAS MEDICATED WITH MORPHINE AND IT HELPED A LITTLE. STATED HE PREFERRED "THAT STUFF THEY GAVE ME IN THE ER" (ATIVAN), SO RECEIVED TELEPHONE ORDER FOR ATIVAN TO HELP WITH AIR HUNGER. ON O2 @ 5 L/MIN NC HUMIDIFIED, WHICH IS HIS BASELINE. IS HAVING A DIFFICULT TIME ADJUSTING TO THIS DEVELOPMENT AND ASKED THIS AUTHOR SEVERAL TIMES ABOUT RE-STARTING DIALYSIS, MOSTLY BECAUSE HE IS AFRAID OF "HOW I MIGHT BEHAVE WHEN I GET OUT OF IT", MEANING ENCEPHALOPATHIC FROM [place]. HE ALSO HAD DISCUSSION WITH Sara ALVARES RN FROM PALLIATIVE CARE. HAD VISIT FROM HIS SISTER AND BROTHER IN LAW THIS AFTERNOON.
--- NOTE | 2021-03-06 01:50 | NUR ---
PATIENT REPORTS HE IS ANXIOUS AND DOES NOT WANT TO BE ALONE. THERAPEUTIC COMMUNICATION PROVIDED. PO ATIVAN 1 MG GIVEN FOR ANXIETY. ABLE TO EXPRESS HIS CONCERNS AND THANKFUL FOR SOMEONE TO LISTEN.
--- NOTE | 2021-03-06 03:16 | NUR ---
SHIFT SUMMARY PATIENT REPORTS ANXIOUS NOT WANTING TO BE ALONE X 2. THERAPEUTIC COMMUNICATION PROVIDED. THANKFUL FOR SOMEONE TO LISTEN TO HIS CONCERNS. PO ATIVAN 1 MG GIVEN FOR ANXIETY. ON COMFORT CARE. HAD NO ACUTE CHANGES. ON 5L O2 NC BASELINE. DIALYSIS PORT INTACT AND REPORTS DIALYSIS DC BEING ON COMFORT CARE. DENIES PAIN AND N/V. NO VISITOR THIS SHIFT. USES URINAL BEDSIDE. COOPERATIVE WITH CARE. CALL LIGHT IN REACH. BED IN LOWEST POSITION AND ALARM ACTIVATED. WILL CONTINUE TO MONITOR UNTIL DAY SHIFT NURSE ASSUMES CARE.
--- NOTE | 2021-03-06 09:32 | NUR ---
UPON ASSESSMENT AT 0755, O2 AT 5 LPM NASAL CANNULA. PATIENT SIDE LYING. RESPIRATION EVEN AND UNLABORED. UNABLE TO VERBALLY COMMUNICATE. HL INTACT R FOREARM. DIALYSIS ACCESS L CHEST. WILL MONITOR.
--- NOTE | 2021-03-06 10:50 | NUR ---
RESTING WITH EYES CLOSED. RESPIRATION EVEN AND UNLABORED. NO DISTRESS NOTED OR AUDIBLE SECRETIONS NOTED. WILL MONITOR.
--- NOTE | 2021-03-06 13:03 | NUR ---
SISTER AND BROTHER IN LAW ARRIVED WITH QUESTIONS WHY THE PATIENT HASN'[facility] THEY DISCUSSED WITH JOHANNA IN PALLIATIVE CARE A COUPLE OF DAYS AGO. SPOKE WITH JOHANNA AND SHE STATES SHE WILL BE OVER TO SPEAK WITH THE FAMILY SHORTLY.
--- NOTE | 2021-03-06 13:26 | NUR ---
Met with family to review plan of care and help them with extate planning.
--- NOTE | 2021-03-06 14:25 | NUR ---
RESTING QUIETLY L LATERAL. REPOSITIONS SELF IN BED AD JAIR. O2 AT 5 LPM NASAL CANNULA IN USE. RESPIRATIONS EVEN AND UNLABORED. FAMILY NOT IN ROOM AT PRESENT.
--- NOTE | 2021-03-06 16:39 | NUR ---
PATIENT HAS REMAINED ASLEEP ALMOST THE ENTIRE DAY. HIS SISTER AND BROTHER IN LAW WERE IN TO VISIT. HIS SISTER'S NUMBER WAS WRITTEN DOWN AND PUT ON THE FRONT OF THE CHART. RESPIRATIONS EVEN AND UNLABORED. O2 AT 5 LPM NASAL CANNULA. NO MOANING, GURGLING, SECRETIONS, ANXIETY NOTED. PATIENT IS A DNR AND HIS SISTER IS HIS POA. CARE MANAGEMENT/PALLIATIVE CARE ACTIVELY WORKING ON DISCHARGE PLAN TO EITHER [place] WITH HOSPICE OR A [place] WITH HOSPICE. WILL MONITOR.
--- NOTE | 2021-03-06 17:27 | NUR ---
Pt appears to be resting comfortably. Request to bedside RN to begin using non-verbal s/s of air hunger, pain and or anxiety, as pt is becoming non-responsive.
--- NOTE | 2021-03-06 18:00 | NUR ---
RESTING QUIET WITH EYES CLOSED SUPINE. O2 AT 5 CONTINUES. RESPIRATIONS EVEN AND UNLABORED. NO GRIMACING, GROANING, ANXIETY, SECRETIONS, GURGLING NOTED. WILL MONITOR.
--- NOTE | 2021-03-06 20:15 | NUR ---
PATIENT AT 1954 THIS EVENING. SPOKE WITH SISTER TERESA WHO IS RENUKA'S POA. SHE REQUESTED THAT [facility] TAKE CARE OF HIM. SHE ALSO STATED THAT SHE ALREADY HAS HIS WALLET AND TO JUST CHECK THE POCKETS OF HIS PANTS TO SEE IF THERE WAS ANYTHING THAT WOULD NEED TO GO TO HER. GANG DRILL OPERATOR VERIFIED AT 1999.
== END 2021-03-06 22:00 ==
LOC: ER 10:29 → MEDS 10:30
PROVIDERS: Student in an Organized Health Care Education/Training Program; ADMIT Internal Medicine
DX: C34.90 Malignant neoplasm of unspecified part of unspecified bronchus or lung (principal); J96.02 Acute respiratory failure with hypercapnia; J96.01 Acute respiratory failure with hypoxia; C77.9 Secondary and unspecified malignant neoplasm of lymph node, unspecified; F17.210 Nicotine dependence, cigarettes, uncomplicated; I13.2 Hypertensive heart and chronic kidney disease with heart failure and with stage 5 chronic kidney disease, or end stage renal disease; I50.9 Heart failure, unspecified; N18.6 End stage renal disease; J44.9 Chronic obstructive pulmonary disease, unspecified; K21.9 Gastro-esophageal reflux disease without esophagitis; E78.5 Hyperlipidemia, unspecified; N40.0 Benign prostatic hyperplasia without lower urinary tract symptoms; Z98.1 Arthrodesis status; Z90.2 Acquired absence of lung [part of]; Z99.2 Dependence on renal dialysis; Z99.81 Dependence on supplemental oxygen; Z51.5 Encounter for palliative care; Z20.822 Contact with and (suspected) exposure to COVID-19
CPT/HCPCS: 0241U; 36415; 36600; 71045; 80048; 82803; 82947; 83605; 83880; 84484; 85025; 93005; 93010; 96365; 96367; 96375; 99285-25; A9270; J0610; J1815; J2060; J2543; J2930; J7030; J7799